=== PATIENT | male | born 1970 | race African-American/Black ===

== ENCOUNTER 2020-02-29 16:20 | Outpatient (CLI) | payer BC ==
--- NOTE | 2020-02-29 16:47 | ULT ---
EXAM: Left lower extremity venous Doppler HISTORY: Left lower extremity edema/swelling. FINDINGS: Grayscale, color-flow, Doppler evaluation, spectral analysis of the left lower extremity venous struc tures is performed with 2-D imaging. The left common femoral, superficial femoral, popliteal, posterior tibial, proximal greater saphenous and profunda femoral veins are imaged. There is normal luminal compressibility, flow, and augmentation in the visualized deep venous structu res of the left lower extremity. IMPRESSION: No evidence of a deep vein thrombosis in the visualized deep venous structures left lower extremity.
== END 2020-02-29 16:21 | disposition home or self-care (01) ==
LOC: SCSULT 16:20
DX: M79.605 Pain in left leg (principal); M79.89 Other specified soft tissue disorders